=== PATIENT | female | born 1975 | race Caucasian/White ===

== ENCOUNTER 2021-10-26 11:13 | Observation (INO) | payer OTHER ==
[2021-10-26] MEDS ORDERED: SODIUM CHLORIDE 0.9% 500 ML 500 ML IV STA (11:31)
--- NOTE | 2021-10-26 11:50 | ED ---
General Adult HPI - General Chief complaint: Shortness of Breath Stated complaint: SOB Time Seen by Provider: 10/26/21 11:29 Source: patient, family, RN notes reviewed, old records reviewed Mode of arrival: ambulatory Limitations: no limitations - History of Present Illness Initial comments: This is a well-appearing 46-year-old female who presents to the emergency room with complaints of shortness of breath for the past week. She states over the past hour it has gotten worse which prompted her to come to the emergency room. Patient states that she does have a history of chest pain and has a pacemaker for "mini heart attacks". States that most of her care was in [place] however they just moved here. She has not established a primary care doctor yet. She was recently diagnosed this year with a nodule in her right lung and was directed to follow up with oncology however she does not have insurance and could not follow-up. She states she went to a hospital in [place] in September and they stated that she does have an enlarged lymph node and again recommended that she follow up. Patient states that at this time she feels short of breath with chest pain that worsens with deep breaths. She is a current smoker. She does have a history of non-Hodgkin's lymphoma several years ago. She does take an aspirin a day. -: week(s) (1) Location: chest Severity scale (1-10): 7 Associated Symptoms: shortness of breath, other (Dizziness) Treatments Prior to Arrival: Aspirin - Related Data Home Medications Medication Instructions Recorded Confirmed Aspirin EC [Ecotrin Low Dose] 81 mg PO DAILY 10/26/21 10/26/21 Isosorbide Mononitrate ER [Imdur] 30 mg PO DAILY 10/26/21 10/26/21 Metoprolol Succinate [Metoprolol 25 mg PO DAILY 10/26/21 10/26/21 Succinate ER] Omeprazole 40 mg PO BID 10/26/21 10/26/21 Allergies Allergy/AdvReac Type Severity Reaction Status Date / Time acetaminophen [From Percocet] Allergy Rash/Hives Verified 10/26/21 13:00 oxycodone [From Percocet] Allergy Rash/Hives Verified 10/26/21 13:00 Review of Systems ROS Statement: Those systems with pertinent positive or pertinent negative responses have been documented in the HPI. ROS Other: All systems not noted in ROS Statement are negative. Past Medical History Past Medical History: Cancer, Respiratory Disorder History of Any Multi-Drug Resistant Organisms: None Reported Past Psychological History: No Psychological Hx Reported Smoking Status: Current every day smoker Past Alcohol Use History: Rare Past Drug Use History: None Reported General Exam Limitations: no limitations General appearance: alert, in no apparent distress Head exam: Present: atraumatic Eye exam: Absent: periorbital swelling ENT exam: Present: mucous membranes moist Neck exam: Absent: meningismus Respiratory exam: Present: normal lung sounds bilaterally. Absent: respiratory distress, accessory muscle use Cardiovascular Exam: Present: regular rate, normal rhythm Extremities exam: Present: normal capillary refill. Absent: pedal edema Back exam: Absent: tenderness Neurological exam: Present: alert, oriented X3, normal gait Psychiatric exam: Present: normal affect, normal mood Skin exam: Present: warm, dry, normal color. Absent: cyanosis, diaphoretic, petechiae, pallor Course Vital Signs 10/26/21 11:23 Temperature 98.1 F Pulse Rate 76 Respiratory 18 Rate Blood Pressure 132/85 O2 Sat by Pulse 98 Oximetry EKG Findings - EKG Results: EKG: sinus rhythm (Ventricular rate 65, OK interval 0.186, QRS 0.96, QTC 0.411) Medical Decision Making - Medical Decision Making Patient presents with chest pain, shortness of breath and dizziness worsening over the past week. She does have a history of non-Hodgkin's lymphoma in r emission, pacemaker and she is a current smoker. Hemoglobin and hematocrit are stable with no evidence of leukocytosis. D-dimer is negative at 0.29. Electrolytes are unremarkable with no evidence of lactic acidosis. Troponin is negative at 0.012 EKG shows sinus rhythm with no ST elevation. There is no old EKG to compare. Chest x-ray shows no evidence of consolidation or effusion. There is no acute cardiopulmonary disease or process. Patient states that she was told that she has a 1.6 cm nodule in her right lung by [facility] in July of this year and confirmed by CT scan at [facility] in September. Medical records were obtained from [place] showing chest CT without contrast identified a 1.6 cm right upper lobe pleural based nodule that may be benign or malignant. A prominent right paratracheal lymph node. Due to patient's chest pain and shortness of breath with a cardiac history of pacemaker and no established care here in [place], she will be admitted to the hospital with cardiology consult. Oncology and pulmonology on consult for right upper lobe nodule. Patient is agreeable to this plan of care. Case discussed with Dr. Haley. - Lab Data Result diagrams: 10/26/21 11:50 10/26/21 11:50 Lab Results 10/26/21 10/26/21 10/26/21 Range/Units 11:50 11:50 11:50 WBC 6.7 (3.8-10.6) k/uL RBC 4.95 (3.80-5.40) m/uL Hgb 14.2 (11.4-16.0) gm/dL Hct 42.5 (34.0-46.0) % MCV 85.8 (80.0-100.0) fL MCH 28.7 (25.0-35.0) pg MCHC 33.5 (31.0-37.0) g/dL RDW 13.8 (11.5-15.5) % Plt Count 167 (150-450) k/uL MPV 9.5 Neutrophils % 63 % Lymphocytes % 28 % Monocytes % 5 % Eosinophils % 3 % Basophils % 1 % Neutrophils # 4.2 (1.3-7.7) k/uL Lymphocytes # 1.9 (1.0-4.8) k/uL Monocytes # 0.3 (0-1.0) k/uL Eosinophils # 0.2 (0-0.7) k/uL Basophils # 0.0 (0-0.2) k/uL PT 10.3 (9.0-12.0) sec INR 0.9 (<1.2) APTT 25.1 (22.0-30.0) sec D-Dimer 0.29 (<0.60) mg/L FEU Sodium 137 (137-145) mmol/L Potassium 4.5 (3.5-5.1) mmol/L Chloride 107 (98-107) mmol/L Carbon Dioxide 24 (22-30) mmol/L Anion Gap 6 mmol/L BUN 12 (7-17) mg/dL Creatinine 0.75 (0.52-1.04) mg/dL Est GFR (CKD-EPI)AfAm >90 (>60 ml/min/1.73 sqM) Est GFR (CKD-EPI)NonAf >90 (>60 ml/min/1.73 sqM) Glucose 176 H (74-99) mg/dL Plasma Lactic Acid John (0.7-2.0) mmol/L Calcium 8.8 (8.4-10.2) mg/dL Magnesium 1.9 (1.6-2.3) mg/dL Total Bilirubin 0.5 (0.2-1.3) mg/dL AST 42 H (14-36) U/L ALT 33 (4-34) U/L Alkaline Phosphatase 123 (38-126) U/L Troponin I (0.000-0.034) ng/mL Total Protein 6.9 (6.3-8.2) g/dL Albumin 3.9 (3.5-5.0) g/dL 10/26/21 10/26/21 Range/Units 11:50 11:50 WBC (3.8-10.6) k/uL RBC (3.80-5.40) m/uL Hgb (11.4-16.0) gm/dL Hct (34.0-46.0) % MCV (80.0-100.0) fL MCH (25.0-35.0) pg MCHC (31.0-37.0) g/dL RDW (11.5-15.5) % Plt Count (150-450) k/uL MPV Neutrophils % % Lymphocytes % % Monocytes % % Eosinophils % % Basophils % % Neutrophils # (1.3-7.7) k/uL Lymphocytes # (1.0-4.8) k/uL Monocytes # (0-1.0) k/uL Eosinophils # (0-0.7) k/uL Basophils # (0-0.2) k/uL PT (9.0-12.0) sec INR (<1.2) APTT (22.0-30.0) sec D-Dimer (<0.60) mg/L FEU Sodium (137-145) mmol/L Potassium (3.5-5.1) mmol/L Chloride (98-107) mmol/L Carbon Dioxide (22-30) mmol/L Anion Gap mmol/L BUN (7-17) mg/dL Creatinine (0.52-1.04) mg/dL Est GFR (CKD-EPI)AfAm (>60 ml/min/1.73 sqM) Est GFR (CKD-EPI)NonAf (>60 ml/min/1.73 sqM) Glucose (74-99) mg/dL Plasma Lactic Acid John 1.6 (0.7-2.0) mmol/L Calcium (8.4-10.2) mg/dL Magnesium (1.6-2.3) mg/dL Total Bilirubin (0.2-1.3) mg/dL AST (14-36) U/L ALT (4-34) U/L Alkaline Phosphatase (38-126) U/L Troponin I <0.012 (0.000-0.034) ng/mL Total Protein (6.3-8.2) g/dL Albumin (3.5-5.0) g/dL Disposition Clinical Impression: Chest pain at rest, Dizziness, Shortness of breath Disposition: ADMITTED IP TO THIS [facility] Condition: Good Referrals: None,Stated [Primary Care Provider] - 1-2 days Decision Date: 10/26/21 Decision Time: 12:29
[2021-10-26 11:57] LABS: Basophils % (A) 1 %; Eosinophils % (A) 3 %; HCT 42.5 % (34.0-46.0); HGB 14.2 gm/dL (11.4-16.0); Lymphocytes # (A) 1.9 k/uL (1.0-4.8); Lymphocytes % (A) 28 %; MCH 28.7 pg (25.0-35.0); MCHC 33.5 g/dL (31.0-37.0); MCV 85.8 fL (80.0-100.0); Mean Platelet Volume 9.5; Monocytes # (A) 0.3 k/uL (0-1.0); Monocytes % (A) 5 %; Neutrophils # (A) 4.2 k/uL (1.3-7.7); Neutrophils % (A) 63 %; Platelet Count 167 k/uL (150-450); RBC 4.95 m/uL (3.80-5.40); RDW 13.8 % (11.5-15.5); WBC 6.7 k/uL (3.8-10.6)
[2021-10-26 11:58] LABS: Eosinophils # (A) 0.2 k/uL (0-0.7)
[2021-10-26 12:08] LABS: ALT 33 U/L (4-34); AST 42 U/L (14-36); African American GFR (CKD) >90 (>60 ml/min/1.73 sqM); Albumin 3.9 g/dL (3.5-5.0); Alkaline Phosphatase 123 U/L (38-126); Anion Gap 6 mmol/L; Blood Urea Nitrogen 12 mg/dL (7-17); Calcium 8.8 mg/dL (8.4-10.2); Carbon Dioxide 24 mmol/L (22-30); Chloride 107 mmol/L (98-107); Glucose 176 mg/dL (74-99); Magnesium 1.9 mg/dL (1.6-2.3); Non-African American GFR(CKD) >90 (>60 ml/min/1.73 sqM); Potassium 4.5 mmol/L (3.5-5.1); Sodium 137 mmol/L (137-145); Total Bilirubin 0.5 mg/dL (0.2-1.3); Total Protein 6.9 g/dL (6.3-8.2)
[2021-10-26 12:15] LABS: INR 0.9 (<1.2); Partial Thromboplastin Time 25.1 sec (22.0-30.0); Prothrombin Time 10.3 sec (9.0-12.0)
--- NOTE | 2021-10-26 12:37 | XR ---
EXAMINATION TYPE: XR chest 2V DATE OF EXAM: 10/26/2021 12:04 PM COMPARISON: None TECHNIQUE: XR chest 2V Frontal and lateral views of the chest. CLINICAL INDICATION:Female, 46 years old with history of difficulty breathing; FINDINGS: Lungs/Pleura: There is no evidence of pleural effusion, focal consolidation, or pneumothorax. Pulmonary vascularity: Unremarkable. Heart/mediastinum: Cardiomediastinal silhouette is unremarkable. Two lead cardiac conduction device o verlying the left hemithorax with lead tips projecting over the right ventricle and right atrium. Musculoskeletal: No acute osseous pathology. IMPRESSION: No acute cardiopulmonary disease/process.
[2021-10-26] MEDS ORDERED: IBUPROFEN 400 MG TAB PO PRN (13:01)
[2021-10-26] MEDS ORDERED: NALOXONE 0.4 MG/ML 1 ML VIAL IV PRN (13:01)
--- NOTE | 2021-10-26 15:00 | P.HPIM ---
History of Present Illness H&P Date: 10/26/21 Chief Complaint: Shortness of breath Chief complaint: Shortness of breath History of present illness: 46-year-old female with history of heart block status post pacemaker. History of lymphoma in remission. GERD. Pulmonary nodule. Current smoker. Presented to the hospital with complaints of chest pain and shortness of breath. The patient describes her chest pain is worse with deep inspiration. The patient just pain has been going on for several months. She stated that she was admitted with it at a different facility and she was told that she had pleurisy but she was never prescribed any medication. She has history of cardiac pacemaker secondary to heart block. She had her last cardiac workup in [place] in 2019. She has not followed up with [facility]coiler now or her PCP as she moved recently from [place]. She also describes shortness of breath with exertion. Denied PND or orthopnea. She does have a strong family history of coronary artery disease. Review of Systems Constitutional: Reports as per HPI, Reports anorexia, Reports fatigue, Reports poor appetite Eyes: denies as per HPI Respiratory: Reports cough, Reports dyspnea, Reports pleurisy Gastrointestinal: Reports as per HPI Genitourinary: Reports as per HPI Musculoskeletal: Reports as per HPI Neurological: Reports as per HPI Psychiatric: Reports as per HPI Endocrine: Reports as per HPI Hematologic/Lymphatic: Reports as per HPI Past Medical History Past Medical History: Cancer, Respiratory Disorder History of Any Multi-Drug Resistant Organisms: None Reported Past Surgical History: Cholecystectomy Past Psychological History: No Psychological Hx Reported Smoking Status: Current every day smoker Past Alcohol Use History: Occasional, Rare Past Drug Use History: None Reported, Unable to Obtain Medications and Allergies Home Medications Medication Instructions Recorded Confirmed Type Aspirin EC [Ecotrin Low Dose] 81 mg PO DAILY 10/26/21 10/26/21 History Isosorbide Mononitrate ER [Imdur] 30 mg PO DAILY 10/26/21 10/26/21 History Metoprolol Succinate [Metoprolol 25 mg PO DAILY 10/26/21 10/26/21 History Succinate ER] Omeprazole 40 mg PO BID 10/26/21 10/26/21 History Allergies Allergy/AdvReac Type Severity Reaction Status Date / Time acetaminophen [From Percocet] Allergy Rash/Hives Verified 10/26/21 13:00 oxycodone [From Percocet] Allergy Rash/Hives Verified 10/26/21 13:00 Physical Exam Vitals: Vital Signs Temp Pulse Resp BP Pulse Ox 10/26/21 13:27 61 15 134/74 100 10/26/21 11:23 98.1 F 76 18 132/85 98 Intake and Output 10/25/21 10/26/21 10/26/21 22:59 06:59 14:59 Other: Weight 104.326 kg General: Alert and oriented 4. Not in distress. Neck supple. No JVD Heart: Sinus rhythm. No murmurs. Lungs: Clear to auscultation. No crackles or wheezing. Abdomen: Soft. Obese. Nontender. Not distended. Positive bowel sounds in 4 quadrants. Skin: Warm and dry. Results CBC & Chem 7: 10/26/21 11:50 10/26/21 11:50 Labs: Abnormal Lab Results - Last 24 Hours (Table) 10/26/21 Range/Units 11:50 Glucose 176 H (74-99) mg/dL AST 42 H (14-36) U/L Thrombosis Risk Factor Assmnt - DVT/VTE Prophylaxis DVT/VTE Prophylaxis: Mechanical Prophylaxis ordered Assessment and Plan Assessment: 46-year-old female with history of heart block status post pacemaker, lymphoma in remission and current smoker presented to the hospital with worsening shortness of breath and chest pain # Chest pain with breathing. 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 May need stress test. Cardiology consulted. Cont ASA, STATINS ECho ordered Fatigue Unknown reason Could be attributed to medications such as BB Will defer to Cards regarding adjustment of meds DVT PPX: Mechanical Will Cont to monitor
[2021-10-26] MEDS: PANTOPRAZOLE 40 MG TABLET PO SCH (16:43)
[2021-10-27] MEDS ORDERED: METOPROLOL SUCCINATE (ER) 25 MG TAB.ER.24H PO SCH (09:00)
--- NOTE | 2021-10-27 09:20 | P.CRDCN ---
History of Present Illness Consult date: 10/27/21 Chief complaint: Chest discomfort History of present illness: This is a 46-year-old female patient with a past medical history significant for permanent pacemaker as well as history of coronary vasospasm according to her as well as hypertension who presented to the hospital complaining of chest discomfort. 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 She presented initially into a facility here complaining of chest discomfort and then she was transferred here. She stated that for the last few days she has been experiencing discomfort in the middle of the chest as a sharp kind of discomfort worse with deep breath. The chest discomfort is not exertionally related. No shortness of breath associated with it. No sweating. No dizziness or lightheadedness and no feeling of heart racing or fluttering or presyncope or syncope. She underwent a workup including EKG showing sinus rhythm without any ischemic ST or T-wave abnormalities and also she underwent cardiac enzymes came in to be unremarkable. D-dimer also was checked and came in to be unremarkable. The chest x-ray did not show any acute abnormalities. She stated that she underwent a heart catheterization about 3 years ago and that came in to be unremarkable. No documentation as of yet Past Medical History Past Medical History: Cancer, Respiratory Disorder Additional Past Medical History / Comment(s): hodgkin lymphoma History of Any Multi-Drug Resistant Organisms: None Reported Past Surgical History: Cholecystectomy Past Psychological History: No Psychological Hx Reported Smoking Status: Current every day smoker Past Alcohol Use History: Occasional, Rare Past Drug Use History: None Reported, Unable to Obtain Medications and Allergies Home Medications Medication Instructions Recorded Confirmed Type Aspirin EC [Ecotrin Low Dose] 81 mg PO DAILY 10/26/21 10/26/21 History Isosorbide Mononitrate ER [Imdur] 30 mg PO DAILY 10/26/21 10/26/21 History Metoprolol Succinate [Metoprolol 25 mg PO DAILY 10/26/21 10/26/21 History Succinate ER] Omeprazole 40 mg PO BID 10/26/21 10/26/21 History Allergies Allergy/AdvReac Type Severity Reaction Status Date / Time acetaminophen [From Percocet] Allergy Rash/Hives Verified 10/26/21 13:00 oxycodone [From Percocet] Allergy Rash/Hives Verified 10/26/21 13:00 Physical Exam Vitals: Vital Signs Temp Pulse Pulse Resp BP BP BP 10/27/21 08:09 10/27/21 07:00 97.7 F 60 17 164/89 10/27/21 02:45 97.9 F 52 L 16 150/77 10/26/21 19:03 98.0 F 60 17 145/78 10/26/21 15:38 60 16 144/78 10/26/21 13:27 61 15 134/74 10/26/21 11:23 98.1 F 76 18 132/85 Pulse Ox 10/27/21 08:09 97 10/27/21 07:00 97 10/27/21 02:45 94 L 10/26/21 19:03 97 10/26/21 15:38 96 10/26/21 13:27 100 10/26/21 11:23 98 Intake and Output 10/26/21 10/27/21 10/27/21 22:59 06:59 14:59 Other: Voiding Method Toilet Toilet # Voids 1 2 Weight 104.326 kg - Constitutional General appearance: no acute distress - Respiratory Respiratory: bilateral: CTA - Cardiovascular Rhythm: regular Heart sounds: normal: S1, S2 Abnormal Heart Sounds: systolic murmur Results 10/26/21 11:50 10/26/21 11:50 Cardiac Enzymes 10/26/21 10/26/21 10/26/21 Range/Units 11:50 11:50 15:20 AST 42 H (14-36) U/L Troponin I <0.012 <0.012 (0.000-0.034) ng/mL 10/26/21 Range/Units 21:06 AST (14-36) U/L Troponin I <0.012 (0.000-0.034) ng/mL Coagulation 10/26/21 Range/Units 11:50 PT 10.3 (9.0-12.0) sec APTT 25.1 (22.0-30.0) sec CBC 10/26/21 Range/Units 11:50 WBC 6.7 (3.8-10.6) k/uL RBC 4.95 (3.80-5.40) m/uL Hgb 14.2 (11.4-16.0) gm/dL Hct 42.5 (34.0-46.0) % Plt Count 167 (150-450) k/uL Comprehensive Metabolic Panel 10/26/21 Range/Units 11:50 Sodium 137 (137-145) mmol/L Potassium 4.5 (3.5-5.1) mmol/L Chloride 107 (98-107) mmol/L Carbon Dioxide 24 (22-30) mmol/L BUN 12 (7-17) mg/dL Creatinine 0.75 (0.52-1.04) mg/dL Glucose 176 H (74-99) mg/dL Calcium 8.8 (8.4-10.2) mg/dL AST 42 H (14-36) U/L ALT 33 (4-34) U/L Alkaline Phosphatase 123 (38-126) U/L Total Protein 6.9 (6.3-8.2) g/dL Albumin 3.9 (3.5-5.0) g/dL Current Medications Generic Name Dose Route Start Last Admin Trade Name Freq PRN Reason Stop Dose Admin Aspirin 81 mg 10/27/21 09:00 Aspirin 81 Mg PO DAILY [facility] Ibuprofen 400 mg 10/26/21 13:01 Ibuprofen 400 Mg Tab PO Q6HR PRN Mild Pain or Fever > 100.5 Isosorbide Mononitrate 30 mg 10/27/21 09:00 Isosorbide Mononitrate Er 30 Mg Tab.Er.24h PO DAILY [facility] Metoprolol Succinate 25 mg 10/27/21 09:00 Metoprolol Succinate (Er) 25 Mg Tab.Er.24h PO DAILY [facility] Naloxone HCl 0.2 mg 10/26/21 13:01 Naloxone 0.4 Mg/Ml 1 Ml Vial IV Q2M PRN Opioid Reversal Pantoprazole Sodium 40 mg 10/26/21 17:30 10/26/21 16:43 Pantoprazole 40 Mg Tablet PO 40 mg BID@0730,1730 [facility] Administration Intake and Output 10/26/21 10/27/21 10/27/21 22:59 06:59 14:59 Other: Voiding Method Toilet Toilet # Voids 1 2 Weight 104.326 kg 10/26/21 11:50 10/26/21 11:50 Assessment and Plan Assessment: Assessment #1 atypical/pleuritic chest discomfort #2 known coronary vasospasm "according to the patient" #3 permanent pacemaker #4 hypertension Plan #1 acute coronary event was ruled out #2 venous thromboembolism was ruled out. D-dimer came in to be unremarkable #3 the picture could be consistent with pericarditis #4 in the light of prior diagnosis of coronary vasospasm, going to DC beta sarah and replace it with dihydropyridine calcium channel sarah #5 obtain an echocardiogram #6 follow-up with the pt
[2021-10-27 09:43] LABS: HCT 40.7 % (37.2-46.3); HGB 12.9 g/dL (12.0-15.0); MCH 26.9 pg (27.0-32.0); MCHC 31.7 g/dL (32.0-37.0); Mean Platelet Volume 12.2 fL (9.5-12.2); NRBC Per 100 WBC 0 /100 WBCS (0.0-0.0); Platelet Count 136 X 10*3/uL (140-440); RBC 4.79 X 10*6/uL (4.10-5.20); RDW 13.5 % (11.5-14.5); WBC 5.28 X 10*3/uL (4.50-10.00)
[2021-10-27] MEDS: PANTOPRAZOLE 40 MG TABLET PO SCH ×2 (09:58→17:31)
[2021-10-27] MEDS: amLODIPine 5 MG TAB PO SCH (09:58)
[2021-10-27] MEDS: ISOSORBIDE MONONITRATE ER 30 MG TAB.ER.24H PO SCH (09:58)
[2021-10-27] MEDS: ASPIRIN 81 MG PO SCH (09:58)
--- NOTE | 2021-10-27 10:17 | P.CNPUL ---
History of Present Illness Consult date: 10/27/21 Chief complaint: Shortness of breath, chest pain History of present illness: 46-year-old female patient who recently moved to [place] from [place], has not established herself with insurance or primary care physician who presented emergency department on 10/26/2021 with complaints of shortness of breath, mild cough, with some whitish colored phlegm, and chest pressure in the lower midsternal area, that last anywhere from minutes to a few hours, worse with deep inspiration. Patient has a long history of smoking. She is not normally on any inhalers or oxygen. She has a permanent pacemaker, and history of Hodgkin's lymphoma which is currently in remission. She had a computed tomography scan of the chest last month that showed 1.6 cm lung nodule, and her most recent computed tomography scan of the chest showed increase in the size of pleural based right upper lobe nodule to 1.7 cm and right paratracheal lymph node enlargement. Chest x-ray in emergency department at the [facility] ED showed no acute cardiopulmonary process. CBC was within normal limits, d-dimer was negative at 0.29, the rest of correlation profile was within normal limits, electrolytes and renal profile were unremarkable, 3 sets of troponins were less than 0.012. EKG showed sinus rhythm without acute ischemic ST or T-wave abnormalities. Review of Systems All systems: negative Constitutional: Denies chills, Denies fever Eyes: denies blurred vision, denies pain Ears, nose, mouth and throat: Denies headache, Denies sore throat Cardiovascular: Denies chest pain, Denies shortness of breath Respiratory: Reports dyspnea, Denies cough Gastrointestinal: Denies abdominal pain, Denies diarrhea, Denies nausea, Denies vomiting Genitourinary: Denies dysuria, Denies hematuria Musculoskeletal: Denies myalgias Integumentary: Denies pruritus, Denies rash Neurological: Denies numbness, Denies weakness Psychiatric: Denies anxiety, Denies depression Endocrine: Denies fatigue, Denies weight change Past Medical History Past Medical History: Cancer, Respiratory Disorder Additional Past Medical History / Comment(s): hodgkin lymphoma History of Any Multi-Drug Resistant Organisms: None Reported Past Surgical History: Cholecystectomy Past Psychological History: No Psychological Hx Reported Smoking Status: Current every day smoker Past Alcohol Use History: Occasional, Rare Past Drug Use History: None Reported, Unable to Obtain Medications and Allergies Home Medications Medication Instructions Recorded Confirmed Type Aspirin EC [Ecotrin Low Dose] 81 mg PO DAILY 10/26/21 10/26/21 History Isosorbide Mononitrate ER [Imdur] 30 mg PO DAILY 10/26/21 10/26/21 History Metoprolol Succinate [Metoprolol 25 mg PO DAILY 10/26/21 10/26/21 History Succinate ER] Omeprazole 40 mg PO BID 10/26/21 10/26/21 History Allergies Allergy/AdvReac Type Severity Reaction Status Date / Time acetaminophen [From Percocet] Allergy Rash/Hives Verified 10/26/21 13:00 oxycodone [From Percocet] Allergy Rash/Hives Verified 10/26/21 13:00 Physical Exam Vitals: Vital Signs Temp Pulse Pulse Resp BP BP BP 10/27/21 08:09 10/27/21 07:00 97.7 F 60 17 164/89 10/27/21 02:45 97.9 F 52 L 16 150/77 10/26/21 19:03 98.0 F 60 17 145/78 10/26/21 15:38 60 16 144/78 10/26/21 13:27 61 15 134/74 10/26/21 11:23 98.1 F 76 18 132/85 Pulse Ox 10/27/21 08:09 97 10/27/21 07:00 97 10/27/21 02:45 94 L 10/26/21 19:03 97 10/26/21 15:38 96 10/26/21 13:27 100 10/26/21 11:23 98 Intake and Output 10/26/21 10/27/21 10/27/21 22:59 06:59 14:59 Other: Voiding Method Toilet Toilet # Voids 1 2 Weight 104.326 kg GENERAL EXAM: Alert, very pleasant, 46-year-old white female, comfortable in no apparent distress. HEAD: Normocephalic/atraumatic. EYES: Normal reaction of pupils, equal size. Conjunctiva pink, sclera white. NOSE: Clear with pink turbinates. THROAT: No erythema or exudates. NECK: No masses, no JVD, no thyroid enlargement, no adenopathy. CHEST: No chest wall deformity. Symmetrical expansion. LUNGS: Equal air entry with no crackles, wheeze, rhonchi or dullness. CVS: Regular rate and rhythm, normal S1 and S2, no gallops, no murmurs, no rubs ABDOMEN: Soft, nontender. No hepatosplenomegaly, normal bowel sounds, no guarding or rigidity. EXTREMITIES: No clubbing, no edema, no cyanosis, 2+ pulses and upper and lower extremities. MUSCULOSKELETAL: Muscle strength and tone normal. SPINE: No scoliosis or deformity SKIN: No rashes CENTRAL NERVOUS SYSTEM: Alert and oriented -3. No focal deficits, tone is normal in all 4 extremities. PSYCHIATRIC: Alert and oriented -3. Appropriate affect. Intact judgment and insight. Results - Laboratory Findings CBC and BMP: 10/27/21 04:38 10/26/21 11:50 PT/INR, D-dimer PT 10.3 sec (9.0-12.0) 10/26/21 11:50 INR 0.9 (<1.2) 10/26/21 11:50 D-Dimer 0.29 mg/L FEU (<0.60) 10/26/21 11:50 Abnormal lab findings: Abnormal Labs 10/26/21 10/27/21 11:50 04:38 MCH 26.9 L MCHC 31.7 L Plt Count 136 L Glucose 176 H AST 42 H - Diagnostic Findings Chest x-ray: report reviewed, image reviewed Assessment and Plan Plan: Assessment: #1. Right upper lobe pulmonary nodule and right paratracheal lymph node enlargement, with the possibility of primary lung malignancy. Patient will be worked up on an outpatient basis #2. Atypical chest pain #3. History of nicotine dependence #4. Permanent pacemaker Plan: Patient was evaluated at the bedside Unfortunately there is no computed tomography scan of the chest films for review from the outside facility We did review the report From pulmonary perspective patient is stable, and the pulmonary nodule will be worked up on an outpatient basis No need to re-scan the patient at this facility Patient will need outpatient PET scan If cleared by cardiology patient could be considered for discharge home Outpatient follow-up with Dr. Stewart in the office I have personally seen and examined the patient, performed the documentation and the assessment and plan as written. Number of minutes spent on the visit: [15] Time with Patient: Greater than 30
[2021-10-27 11:14] LABS: African American GFR (CKD) 107.8 (60.0-200.0); Anion Gap 9.2 mmol/L (10.00-18.00); BUN/Creat Ratio 13.66 Ratio (12.00-20.00); Blood Urea Nitrogen 10.6 mg/dL (9.0-27.0); Calcium 8.6 mg/dL (8.7-10.3); Carbon Dioxide 23.1 mmol/L (20.0-27.5); Potassium 4.3 mmol/L (3.5-5.5)
--- NOTE | 2021-10-27 12:46 | CT ---
EXAMINATION TYPE: CT chest wo con CT DLP: 431.50 mGycm, Automated exposure control for dose reduction was used. DATE OF EXAM: 10/27/2021 12:26 PM COMPARISON: Chest radiograph from one day prior. CLINICAL INDICATION:Female, 46 years old with history of Lung nodule; TECHNIQUE: Multiple axial images were obtained through the chest. Sagittal and coronal reformats were created for review. Contrast used: none. Oral contrast used: none. FINDINGS: LUNGS/ PLEURA: Right upper lobe pulmonary nodule measuring up to 17 mm a with possible focus of cavit ation present no evidence of focal consolidation, pneumothorax or pleural effusion. No additional nod ules identified. AIRWAY: Patent and unremarkable. HEART: The heart is mildly enlarged for size. MEDIASTINUM: Right low paratracheal prominent lymph nodes with some enlarged measuring up to 10 mm in short axis. VASCULATURE: No aortic aneurysm. MUSCULOSKELETAL: No acute osseous abnormalities SOFT TISSUES/LYMPH NODES: Left chest wall cardiac conduction device with leads terminating in the rig ht ventricle and atrium. LOWER NECK: No significant findings. UPPER ABDOMEN: Diffuse low-attenuation to the liver parenchyma. Soft tissue nodule in the left adrena l gland which is indeterminate and measures the gallbladder surgically absent. Up to 2.1 cm. IMPRESSION: Right upper lobe pulmonary nodule measuring up to 17 mm with possible early cavitation. Further evalu ation with tissue sampling and/or nuclear medicine PET/CT is recommended. Comparisons with priors at outside institutions may be of benefit for stability. Diagnosis of exclusion is malignancy with under lying infectious/inflammatory processes also remain in the differential given cavitation thought to b e present
[2021-10-27] MEDS ORDERED: COLCHICINE 0.6 MG EACH PO ONE (12:47)
--- NOTE | 2021-10-27 12:58 | P.PN ---
Subjective Progress Note Date: 10/27/21 Principal diagnosis: Chest pain follow-up The patient was seen and examined today. She is sitting in bed and looks comfortable. No acute events overnight. She stated that her chest pain is improving. She still have some with deep breathing. She does not have palpitations. Her appetite is good. Objective - Vital Signs Vital signs: Vital Signs Temp 97.4 F L 10/27/21 11:54 Pulse 59 L 10/27/21 11:54 Resp 17 10/27/21 11:54 BP 135/78 10/27/21 11:54 Pulse Ox 95 10/27/21 11:54 FiO2 Intake & Output 10/26/21 10/27/21 10/27/21 18:59 06:59 18:59 Weight 104.326 kg Other: Voiding Method Toilet # Voids 2 - Constitutional General appearance: Present: cooperative, no acute distress - Neck Neck: Present: normal ROM - Respiratory Respiratory: bilateral: CTA, negative: rales, rhonchi, wheezing - Cardiovascular Rhythm: regular Heart sounds: normal: S1, S2 - Gastrointestinal General gastrointestinal: Present: normal bowel sounds, soft - Neurologic Neurologic: Present: CNII-XII intact. Absent: focal deficits - Labs CBC & Chem 7: 10/27/21 04:38 10/27/21 04:38 Labs: Abnormal Lab Results - Last 24 Hours (Table) 10/27/21 10/27/21 Range/Units 04:38 04:38 MCH 26.9 L (27.0-32.0) pg MCHC 31.7 L (32.0-37.0) g/dL Plt Count 136 L (140-440) X 10*3/uL Anion Gap 9.20 L (10.00-18.00) mmol/L Glucose 173 H (70-110) mg/dL Calcium 8.6 L (8.7-10.3) mg/dL Assessment and Plan Plan: Assessment and plan: Pleuritic chest pain Likely pleuritic in nature. EKG and troponin negative. ACS ruled out. Cardiology saw patient. Echocardiogram pending. Patient also has history of coronary spasms. Metoprolol was discontinued secondary to side effect of fatigue. Norvasc was added by cardiology due to vasospasms and blood pressure control. Continue to monitor. Discontinue ibuprofen. Started on colchicine for pleuritic chest pain. Colchicine 1.2 mg 1 time and then colchicine 0.6 mg by mouth twice a day until resolution of symptoms. Prior history of heart block status post pacemaker. Recommend device interrogation as an outpatient. Recommend follow-up with cardiology as an outpatient Right lung nodule Oncology consulted. Computed tomography scan of the chest pending Smoking: Recommended cessation. Disposition: Pending echocardiogram. Likely home tomorrow. Time with Patient: Greater than 30
[2021-10-27] MEDS ORDERED: IBUPROFEN 400 MG TAB PO STA (19:35)
[2021-10-27] MEDS: COLCHICINE 0.6 MG EACH PO SCH (20:08)
--- NOTE | 2021-10-27 23:55 | P.CONS ---
History of Present Illness - Reason for Consult Consult date: 10/27/21 Lung nodule, history of Hodgkin's lymphoma - History of Present Illness The patient is a 46-year-old white female, admitted due to complaints of cough, shortness of breath, intermittent subjective fevers, and pleuritic chest pain. The patient's symptoms started about 2 months ago, and have shown slow progression, with intermittent exacerbations. She has not responded to outpatient treatments. Patient's workup included chest x-ray, as well as a computed tomography scan of the chest in 08/11 and another computed tomography scan on 09/24/21 done at [facility]. Both the computed tomography scan showed a right upper lobe lung nodule. The second scan showed possibly some increase in size with cavitation, as well as some nonspecific bronchial nodes. This was an angiogram, that was negative for PE. The patient was admitted for further workup because of progressive symptoms. She has a history of Hodgkin's lymphoma diagnosed in 2000 that appears to have been at least stage III. She was treated with a full course of chemotherapy in [place], and achieved complete remission. She then had oncology follow-up for several years post, without evidence of recurrence Review of Systems Constitutional: Reports chronic pain, Reports fatigue, Reports fever, Reports malaise, Reports poor appetite, Reports weight loss (Minor, 5 pounds in the last 5-6 weeks) Eyes: denies blurred vision, denies pain Ears: deny: decreased hearing, ear discharge, earache, tinnitus Ears, nose, mouth and throat: Denies headache, Denies sore throat Cardiovascular: Reports chest pain, Reports dyspnea on exertion Respiratory: Reports dyspnea, Reports pain on inspiration Gastrointestinal: Denies abdominal pain, Denies diarrhea, Denies nausea, Denies vomiting Genitourinary: Denies dysuria, Denies hematuria Musculoskeletal: Denies myalgias Integumentary: Denies pruritus, Denies rash Neurological: Denies numbness, Denies weakness Psychiatric: Reports anxiety Endocrine: Reports fatigue Hematologic/Lymphatic: Reports as per HPI Past Medical History Past Medical History: Cancer, Respiratory Disorder Additional Past Medical History / Comment(s): hodgkin lymphoma History of Any Multi-Drug Resistant Organisms: None Reported Past Surgical History: Cholecystectomy Past Psychological History: No Psychological Hx Reported Smoking Status: Current every day smoker Past Alcohol Use History: Occasional, Rare Past Drug Use History: None Reported, Unable to Obtain Medications and Allergies Home Medications Medication Instructions Recorded Confirmed Type Aspirin EC [Ecotrin Low Dose] 81 mg PO DAILY 10/26/21 10/26/21 History Isosorbide Mononitrate ER [Imdur] 30 mg PO DAILY 10/26/21 10/26/21 History Metoprolol Succinate [Metoprolol 25 mg PO DAILY 10/26/21 10/26/21 History Succinate ER] Omeprazole 40 mg PO BID 10/26/21 10/26/21 History Allergies Allergy/AdvReac Type Severity Reaction Status Date / Time acetaminophen [From Percocet] Allergy Rash/Hives Verified 10/26/21 13:00 oxycodone [From Percocet] Allergy Rash/Hives Verified 10/26/21 13:00 Physical Exam Vitals: Vital Signs Temp Pulse Pulse Resp BP BP BP 10/27/21 08:09 10/27/21 07:00 97.7 F 60 17 164/89 10/27/21 02:45 97.9 F 52 L 16 150/77 10/26/21 19:03 98.0 F 60 17 145/78 10/26/21 15:38 60 16 144/78 10/26/21 13:27 61 15 134/74 10/26/21 11:23 98.1 F 76 18 132/85 Pulse Ox 10/27/21 08:09 97 10/27/21 07:00 97 10/27/21 02:45 94 L 10/26/21 19:03 97 10/26/21 15:38 96 10/26/21 13:27 100 10/26/21 11:23 98 Intake and Output 10/26/21 10/27/21 10/27/21 22:59 06:59 14:59 Other: Voiding Method Toilet Toilet # Voids 1 2 Weight 104.326 kg - Constitutional General appearance: no acute distress - EENT Eyes: EOMI, PERRLA ENT: hearing grossly normal, normal oropharynx - Neck Neck: no lymphadenopathy Thyroid: bilateral: normal size - Respiratory Respiratory: bilateral: CTA - Cardiovascular Rhythm: regular Heart sounds: normal: S1, S2 - Gastrointestinal General gastrointestinal: normal bowel sounds, soft - Integumentary Integumentary: normal - Neurologic Neurologic: CNII-XII intact - Musculoskeletal Musculoskeletal: generalized weakness, strength equal bilaterally - Psychiatric Psychiatric: A&O x's 3, appropriate affect Mildly prominent soft tissue in the left axilla without definite lymph node enlargement Results CBC & Chem 7: 10/27/21 04:38 10/27/21 04:38 Labs: Abnormal Lab Results - Last 24 Hours (Table) 10/26/21 10/27/21 Range/Units 11:50 04:38 MCH 26.9 L (27.0-32.0) pg MCHC 31.7 L (32.0-37.0) g/dL Plt Count 136 L (140-440) X 10*3/uL Glucose 176 H (74-99) mg/dL AST 42 H (14-36) U/L Chest x-ray: report reviewed CT scan - chest: report reviewed Assessment and Plan (1) Lung nodule Narrative/Plan: the patient has a known right upper lobe lung nodule, which showed some increase in size and cavitation on follow-up study 1 month ago. Given the location and size that would typically not be expected to cause the symptoms that the patient has been having. It is therefore not known if this is related at this time. Repeat CT chest to check for any progression in size or development of any new findings. If that is found, the patient will need additional workup, with PET scan and possible biopsy. Current Visit: Yes Status: Acute Code(s): R91.1 - SOLITARY PULMONARY NODULE SNOMED Code(s): 403345836 (2) Chest pain at rest Narrative/Plan: history and workup so far as described. As noted, etiology is somewhat unclear. The patient did have a CT angiogram last month which ruled out PE. Location and size of the lung nodule makes it unlikely to be the cause of her symptoms. Await results of new CT scan. Continue treatment per IM and pulmonary medicine in the interim. Current Visit: Yes Status: Acute Code(s): R07.9 - CHEST PAIN, UNSPECIFIED SNOMED Code(s): 1455477
[2021-10-28] MEDS: ASPIRIN 81 MG PO SCH (08:12)
[2021-10-28] MEDS: PANTOPRAZOLE 40 MG TABLET PO SCH ×2 (08:12→17:39)
[2021-10-28] MEDS: ISOSORBIDE MONONITRATE ER 30 MG TAB.ER.24H PO SCH (08:12)
[2021-10-28] MEDS: COLCHICINE 0.6 MG EACH PO SCH ×2 (08:12→20:17)
[2021-10-28] MEDS: amLODIPine 5 MG TAB PO SCH (08:12)
[2021-10-28] MEDS ORDERED: COLCHICINE 0.6 MG EACH PO SCH (09:00)
[2021-10-28 09:06] LABS: LDH 149 U/L (120-246); Rheumatoid Factor, Qnt <10 IU/mL (0-15)
[2021-10-28 09:07] LABS: Protein, Total 5.8 g/dL (6.2-8.2)
--- NOTE | 2021-10-28 09:50 | P.PN ---
Subjective This is a 46-year-old female patient with a past medical history significant for permanent pacemaker, history of coronary vasospasm, Hodgkin's lymphoma, hypertension. She recently moved from [place] to [place] and is going to set up cardiology care with a Dr. Carla Oliveira. She presented to the hospital complaining of chest discomfort. She presented initially into a facility here complaining of chest discomfort and then she was transferred here. She stated that for the last few days she has been experiencing discomfort in the middle of the chest as a sharp kind of discomfort worse with deep breath. The chest discomfort is not exertionally related. No shortness of breath associated with it. No sweating. No dizziness or lightheadedness and no feeling of heart racing or fluttering or presyncope or syncope. She underwent a workup including EKG showing sinus rhythm without any ischemic ST or T-wave abnormalities and also she underwent cardiac enzymes came in to be unremarkable. D-dimer also was checked and came in to be unremarkable. The chest x-ray did not show any acute abnormalities. She stated that she underwent a heart catheterization about 3 years ago and that came in to be unremarkable. Patient seen and examined at bedside, no acute distress. She was started on colchicine and amlodipine, and her chest discomfort has improved. She is feeling well this morning. Her vital signs are stable. Her echocardiogram is pending. GENERAL: Well-appearing, well-nourished and in no acute distress. NECK: Supple without JVD or thyromegaly. LUNGS: Breath sounds clear to auscultation bilaterally. Respiration equal and unlabored. No wheezes, rales or rhonchi. HEART: Regular rate and rhythm without murmurs, rubs or gallops. S1 and S2 heard. EXTREMITIES: Normal range of motion, no edema. No clubbing or cyanosis. Pe ripheral pulses intact. ASSESSMENT Chest discomfort, atypical/pleuritic Possible pericarditis, improvement in symptoms with colchicine History of permanent pacemaker implantation History of coronary vasospasm per patient Hypertension Chronic nicotine dependence History of Hodgkin's lymphoma Right upper lobe pulmonary nodule noted on CT chest with concern for malignancy PLAN Acute coronary syndrome has been ruled out We will obtain 2-D echocardiogram Recommend continuing colchicine and amlodipine From cardiology perspective, this patient feels well and her discomfort has improved, okay to discharge from cardiology perspective and follow up outpatient. Nurse Practitioner note has been reviewed, I agree with a documented findings and plan of care. Patient was seen and examined. Objective - Vital Signs Vital signs: Vital Signs Temp 97.7 F 10/28/21 07:00 Pulse 60 10/28/21 07:00 Resp 18 10/28/21 07:00 BP 147/78 10/28/21 07:00 Pulse Ox 96 10/28/21 07:00 FiO2 Intake & Output 10/27/21 10/28/21 10/28/21 18:59 06:59 18:59 Intake Total 222 Balance 222 Intake: Oral 222 Other: Voiding Method Toilet # Voids 2 2 - Labs CBC & Chem 7: 10/27/21 04:38 10/27/21 04:38 Labs: Abnormal Lab Results - Last 24 Hours (Table) 10/27/21 10/27/21 10/28/21 Range/Units 04:38 04:38 03:23 MCH 26.9 L (27.0-32.0) pg MCHC 31.7 L (32.0-37.0) g/dL Plt Count 136 L (140-440) X 10*3/uL Anion Gap 9.20 L (10.00-18.00) mmol/L Glucose 173 H (70-110) mg/dL Calcium 8.6 L (8.7-10.3) mg/dL Total Protein (PEP) 5.8 L (6.2-8.2) g/dL
--- NOTE | 2021-10-28 11:39 | CA ---
Transthoracic Echo Report Name: Ke Myers Age: 46 Gender: F : 1975 Exam Date: 10/28/2021 10:32 Exam Location: [facility] Ht (in): 63 Wt (lb): 230 Ordering Physician: Bre Aguayo MD Attending/Referring Phys: Car Dumper Aagtha Hinojosa RDCS Procedure CPT: Indications: Chest pain , SOB Cardiac Hx: Technical Quality: Fair Contrast 1: Total Dose (mL): Contrast 2: Total Dose (mL): MEASUREMENTS (Male / Female) Normal Values 2D ECHO LV Diastolic Diameter PLAX 5.2 cm 4.2 - 5.9 / 3.9 - 5.3 cm LV Systolic Diameter PLAX 3.5 cm IVS Diastolic Thickness 1.1 cm 0.6 - 1.0 / 0.6 - 0.9 cm LVPW Diastolic Thickness 1.0 cm 0.6 - 1.0 / 0.6 - 0.9 cm LV Relative Wall Thickness 0.4 RV Internal Dim ED PLAX 3.0 cm LA Systolic Diameter LX 3.6 cm 3.0 - 4.0 / 2.7 - 3.8 cm LA Volume 51.5 cm??? 18 - 58 / 22 - 52 cm??? M-MODE Aortic Root Diameter MM 3.0 cm MV E Point Septal Separation 0.7 cm AV Cusp Separation MM 1.8 cm DOPPLER AV Peak Velocity 139.8 cm/s AV Peak Gradient 7.8 mmHg AI Peak Velocity 225.0 cm/s AI Peak Gradient 20.3 mmHg AI Pressure Half Time 515.0 ms MV Area PHT 1.9 cm??? Mitral E Point Velocity 68.0 cm/s Mitral A Point Velocity 102.5 cm/s Mitral E to A Ratio 0.7 MV Deceleration Time 405.2 ms MV E' Velocity 6.1 cm/s Mitral E to MV E' Ratio 11.2 TR Peak Velocity 284.6 cm/s TR Peak Gradient 32.4 mmHg Right Ventricular Systolic Press 37.4 mmHg FINDINGS Left Ventricle Left ventricular ejection fraction is estimated at 55-60 % left ventricular cavity size normal. Left ventricular wall thickness normal. Right Ventricle Normal right ventricular size and function. Mild pulmonary hypertension. Right Atrium Normal right atrial size. Left Atrium Normal left atrial size. Mitral Valve Structurally normal mitral valve. No mitral stenosis, regurgitation or prolapse. Aortic Valve Trileaflet aortic valve. Focal thickening of the aortic valve cusps. Mild aortic regurgitation. Tricuspid Valve Mild tricuspid regurgitation. Pulmonic Valve Structurally normal pulmonic valve. Pericardium Normal pericardium. No pericardial effusion. Aorta Normal size aortic root and proximal ascending aorta. CONCLUSIONS Normal LV systolic function mild aortic regurgitation mild tricuspid regurgitation Previewed by: Dr. Deep Orantes MD (Electronically Signed) Final Date: 28 October 2021 11:38
--- NOTE | 2021-10-28 13:09 | P.PN ---
Subjective Progress Note Date: 10/28/21 Principal diagnosis: Pulm Nodule Discussed preferred plan of outpatient PET scan then potential biopsy of RUL nodule, patient just moved here and is still in between insurance at this time. She has a known history of lymphoma and is quite anxious about the way she has been feeling. Discussed further and will attempt to obtain biopsy inpatient of RUL node Objective - Vital Signs Vital signs: Vital Signs Temp 97.7 F 10/28/21 07:00 Pulse 60 10/28/21 07:00 Resp 18 10/28/21 07:00 BP 147/78 10/28/21 07:00 Pulse Ox 96 10/28/21 07:00 FiO2 Intake & Output 10/27/21 10/28/21 10/28/21 18:59 06:59 18:59 Intake Total 222 Balance 222 Intake: Oral 222 Other: Voiding Method Toilet # Voids 2 2 3 - Exam - Constitutional General appearance: no acute distress - EENT Eyes: EOMI, PERRLA ENT: hearing grossly normal, normal oropharynx - Neck Neck: no lymphadenopathy Thyroid: bilateral: normal size - Respiratory Respiratory: bilateral: CTA - Cardiovascular Rhythm: regular Heart sounds: normal: S1, S2 - Gastrointestinal General gastrointestinal: normal bowel sounds, soft - Integumentary Integumentary: normal - Neurologic Neurologic: CNII-XII intact - Musculoskeletal Musculoskeletal: generalized weakness, strength equal bilaterally - Psychiatric Psychiatric: A&O x's 3, appropriate affect Mildly prominent soft tissue in the left axilla without definite lymph node enlargement - Labs CBC & Chem 7: 10/27/21 04:38 10/27/21 04:38 Labs: Abnormal Lab Results - Last 24 Hours (Table) 10/28/21 Range/Units 03:23 Total Protein (PEP) 5.8 L (6.2-8.2) g/dL Assessment and Plan Plan: Chest x-ray: report reviewed CT scan - chest: report reviewed Assessment and Plan (1) Lung nodule Narrative/Plan: the patient has a known right upper lobe lung nodule, which showed some increase in size and cavitation on follow-up study 1 month ago. Given the location and size that would typically not be expected to cause the symptoms that the patient has been having. It is therefore not known if this is related at this time. Repeat CT chest to check for any progression in size or development of any new findings. If that is found, the patient will need additional workup, with PET scan and possible biopsy. -If possible feel the benefit of RUL tissue biopsy is preferred given the expected delay in PET scan as outpatient and the ultimate need of tissue biopsy of this Nodule. Current Visit: Yes Status: Acute Code(s): R91.1 - SOLITARY PULMONARY NODULE SNOMED Code(s): 769414448 (2) Chest pain at rest Narrative/Plan: Review of CT RUL lesion 1.7cm Continue treatment per IM and pulmonary medicine in the interim. Current Visit: Yes Status: Acute Code(s): R07.9 - CHEST PAIN, UNSPECIFIED SNOMED Code(s): 7178937
[2021-10-28 14:25] LABS: Free Kappa Lt Chain Qnt, Serum 3.27 mg/dL (0.33-1.94); Free Lambda Lt Chain Qnt, Seru 1.49 mg/dL (0.57-2.63)
--- NOTE | 2021-10-28 14:52 | P.PN ---
Subjective Progress Note Date: 10/28/21 Principal diagnosis: Chest pain. Patient denies shortness of breath today. Denied chest pain. Denied nausea or vomiting. Denied fever or chills. Objective - Vital Signs Vital signs: Vital Signs Temp 97.9 F 10/28/21 13:26 Pulse 60 10/28/21 13:26 Resp 16 10/28/21 13:26 BP 144/77 10/28/21 13:26 Pulse Ox 96 10/28/21 13:26 FiO2 Intake & Output 10/27/21 10/28/21 10/28/21 18:59 06:59 18:59 Intake Total 222 118 Balance 222 118 Intake: Oral 222 118 Other: Voiding Method Toilet # Voids 2 2 3 - Exam Gen.: The patient is alert and oriented 3 Neck supple no JVD Lungs clear to auscultation bilaterally Abdomen soft nondistended nontender positive bowel sounds Skin: Warm and dry. - Labs CBC & Chem 7: 10/27/21 04:38 10/27/21 04:38 Labs: Abnormal Lab Results - Last 24 Hours (Table) 10/28/21 Range/Units 03:23 Total Protein (PEP) 5.8 L (6.2-8.2) g/dL Free [place] LC, Quant 3.27 H (0.33-1.94) mg/dL Assessment and Plan Assessment: 46-year-old female with history of heart block status post pacemaker, lymphoma in remission and current smoker presented to the hospital with worsening shortness of breath and chest pain # Chest pain with breathing. Pleuritic in nature Improving student support advisor echo with no significant findings Cardiology consult no further recommendations. At this point her metoprolol was discontinued and she was placed on Norvasc for possible coronary vasospasm. This was done by cardiology. Was started on colchicine for possible pleurisy. Symptoms improved significantly. Patient denied chest pain today. Lung nodule. Computed tomography scan of the chest with contrast revealed evidence of 1.6-1.7 cm lung nodule with lymph node enlargement. Also possible underlying cavitation. Pulmonology was consulted with the plan by oncology to do a PET sca n and possible lung biopsy while the patient is hospitalized as the patient does not have insurance and there is a risk of not following up and developing serious complications. She will be kept in the hospital for that reason had to complete the work up. Smoking: Recommend cessation. History of pacemaker Recommend device interrogation as an outpatient. Disposition: PET scan on the lung biopsy DVT PPX: Mechanical Will Cont to monitor
[2021-10-29 03:04] VITALS: RESP 16; TEMP 98.1
[2021-10-29 07:44] VITALS: BP 154/83; PULSE 63
[2021-10-29] MEDS: COLCHICINE 0.6 MG EACH PO SCH (08:43)
[2021-10-29] MEDS: ISOSORBIDE MONONITRATE ER 30 MG TAB.ER.24H PO SCH (08:43)
[2021-10-29] MEDS: ASPIRIN 81 MG PO SCH (08:43)
[2021-10-29] MEDS: amLODIPine 5 MG TAB PO SCH (08:43)
[2021-10-29] MEDS: PANTOPRAZOLE 40 MG TABLET PO SCH (08:43)
[2021-10-29 16:41] LABS: Albumin 3.36 g/dL (3.80-4.90); Gamma Globulin 0.95 g/dL (0.70-1.50)
--- NOTE | 2021-10-29 17:00 | P.DS ---
Providers Date of admission: 10/26/21 13:39 Expected date of discharge: 10/29/21 Attending physician: Lai Hill MD Consults: 10/26/21 13:01 Consult Physician Routine Consulting Provider: Grady Jane Consult Reason/Comments: chest pain Do you want consulting provider notified?: Yes, Notify in am Consult Physician Routine Consulting Provider: Chip Maldonado Consult Reason/Comments: pulmonary nodule, shortness of breath Do you want consulting provider notified?: Yes, Notify in am 10/26/21 13:04 Consult Physician Routine Consulting Provider: Jourdan Stewart Consult Reason/Comments: Pulmonary nodule Do you want consulting provider notified?: Yes, Notify in am Primary care physician: Stated None Hospital Course: Discharge Diagnosis: Chest pain, possible pericarditis Right upper lobe mass Hypertension Obesity with BMI 40.7 Hospital Course: Patient is a 46-year-old female with a history of heart block status post pacemaker, lymphoma in remission, GERD, and pulmonary nodule who presented to the ER with complaints of chest pain and shortness of breath. He was admitted for chest pain rule out. Her troponin remained negative. She was seen by cardiology and underwent echocardiogram which showed an ejection fraction of 55- 60% with mild aortic and tricuspid regurgitation. She was seen by cardiology and determined stable for discharge. They did recommend continuing with colchicine and following up in the office. CT chest demonstrated a 17 mm right upper lobe pulmonary nodule possible cavitation with no evidence of focal consolidation. Will hematology oncology and pulmonary were contacted. After much discussion that lesion is at high area of her bra with biopsy. Pulmonary recommends PET CT as outpatient, hematology oncology and is in agreement. Patient does not have insurance at this time but is in the process of applying for Medicaid which should be active soon. I discussed with patient's the midportion of follow-up. She understands the importance of needing the PET/CT as well as by biopsy is not indicated at this time. We discussed the risks versus benefits of biopsy were greater at this time given the location of the mass. She is aware that this could be a cancerous lesion and she does need to ensure follow-up for PET/CT, patient agreeable to plan. She was discharged home in stable condition. She will establish with Dr. John is a primary care provider once she has obtained insurance, she'll follow up with Dr. Smalls in 2 weeks. She'll follow up with cardiology in 1-2 weeks. She was discharged home on colchicine due to possible pericarditis and Norvasc for newly discovered hypertension. Patient seen and examined at bedside. States that her chest pain is better. We had a discussion regarding her pulmonary mass as outlined above. No nausea or vomiting. Vital signs reviewed and stable. General: nontoxic, no distress, appears at stated age Derm: warm, dry Head: atraumatic, normocephalic, symmetric Eyes: EOMI, no lid lag, anicteric sclera Mouth: no lip lesion, mucus membranes moist Cardiovascular: S1S2 reg, no murmur, positive posterior tibial pulse bilateral, Lungs: CTA bilateral, no rhonchi, no rales , no accessory muscle use Abdominal: soft, nontender to palpation, no guarding, no appreciable organomegaly Ext: no gross muscle atrophy, no edema, no contractures Neuro: CN II-XI grossly intact, no focal neuro deficits Psych: Alert, oriented, flat affect A total of 25 minutes of time were spent preparing this complex discharge summary. Patient was discharged on 10/29/21. Patient Condition at Discharge: Stable Plan - Discharge Summary Discharge Rx Participant: Yes New Discharge Prescriptions: New Colchicine [Colcrys] 0.6 mg PO BID each amLODIPine [Norvasc] 5 mg PO DAILY tab Continue Omeprazole 40 mg PO BID Isosorbide Mononitrate ER [Imdur] 30 mg PO DAILY Aspirin EC [Ecotrin Low Dose] 81 mg PO DAILY Discontinued Metoprolol Succinate [Metoprolol Succinate ER] 25 mg PO DAILY Discharge Medication List Aspirin EC [Ecotrin Low Dose] 81 mg PO DAILY 10/26/21 [History] Isosorbide Mononitrate ER [Imdur] 30 mg PO DAILY 10/26/21 [History] Omeprazole 40 mg PO BID 10/26/21 [History] Colchicine [Colcrys] 0.6 mg PO BID each 10/28/21 [Rx] amLODIPine [Norvasc] 5 mg PO DAILY tab 10/28/21 [Rx] Follow up Appointment(s)/Referral(s): Grady Jane MD [STAFF PHYSICIAN] - 1 Week None,Stated [Primary Care Provider] - 1-2 days Mariela Jones MD [STAFF PHYSICIAN] - 2 Weeks Activity/Diet/Wound Care/Special Instructions: Activity: as tolerated Diet: heart healthy Special Instructions: You have a nodule in your left lung. This needs a PET/CT to further evaluate the nodule. Please ensure that you follow-up with Dr. Jones to get this arranged. Please continue your medicaid application to obtain insurance. Discharge/Stand Alone Forms: Who Do I Call?, Community Resources, Personal Figure Skater Discharge Disposition: HOME SELF-CARE
--- NOTE | 2021-10-29 17:30 | P.PN ---
Subjective Progress Note Date: 10/29/21 Principal diagnosis: RUL nodule Pt seen in f/u today, she has no acute c/o today Objective - Vital Signs Vital signs: Vital Signs Temp 98.1 F 10/29/21 07:00 Pulse 63 10/29/21 07:00 Resp 16 10/29/21 07:00 BP 154/83 10/29/21 07:00 Pulse Ox 97 10/29/21 07:00 FiO2 Intake & Output 10/28/21 10/29/21 10/29/21 18:59 06:59 18:59 Intake Total 236 Balance 236 Intake: Oral 236 Other: Voiding Method Toilet # Voids 3 1 - Constitutional General appearance: Present: average body habitus, cooperative, no acute distress - EENT Eyes: Present: anicteric sclerae, EOMI ENT: Present: hearing grossly normal - Respiratory Details: resp even and unlabored - Cardiovascular Details: skin warm and dry to touch - Peripheral edema leg Peripheral Edema: bilateral: None - Neurologic Neurologic: Present: CNII-XII intact - Musculoskeletal Musculoskeletal: Present: strength equal bilaterally - Psychiatric Psychiatric: Present: A&O x's 3, appropriate affect, intact judgment & insight - Labs CBC & Chem 7: 10/27/21 04:38 10/27/21 04:38 Labs: Abnormal Lab Results - Last 24 Hours (Table) 10/28/21 Range/Units 03:23 Albumin (PEP) 3.36 L (3.80-4.90) g/dL Assessment and Plan (1) NHL (non-Hodgkin's lymphoma) Status: Chronic Priority: Medium Code(s): C85.90 - NON-HODGKIN LYMPHOMA, UNSPECIFIED, UNSPECIFIED SITE SNOMED Code(s): 521311163 (2) Lung nodule Status: Acute Priority: High Code(s): R91.1 - SOLITARY PULMONARY NODULE SNOMED Code(s): 328695121 Plan: Case discussed with IM, Pulmonary. Lung lesion is non-specific. Recommendation is for PET scan outpt to fully assess pt (has Hx of NHL). If FDG avid, biopsy will be pursued. Will contact pt with appt for PET and f/u. Pt provided info about her NHL Hx, will attempt to obtain records-they would be 24 years old.
== END 2021-10-29 14:04 | disposition home or self-care (01) ==
LOC: EC 11:13 → 6NMEDSUR 13:39
PROVIDERS: ADMIT Internal Medicine; ATTEND Internal Medicine
DX: R07.89 Other chest pain (principal); R91.1 Solitary pulmonary nodule; R09.1 Pleurisy; I20.1 Angina pectoris with documented spasm; I10 Essential (primary) hypertension; K21.9 Gastro-esophageal reflux disease without esophagitis; I45.9 Conduction disorder, unspecified; I08.2 Rheumatic disorders of both aortic and tricuspid valves; R59.0 Localized enlarged lymph nodes; Z68.41 Body mass index [BMI] 40.0-44.9, adult; E66.9 Obesity, unspecified; R53.83 Other fatigue; R42 Dizziness and giddiness; F17.200 Nicotine dependence, unspecified, uncomplicated; Z85.72 Personal history of non-Hodgkin lymphomas; Z79.82 Long term (current) use of aspirin; Z79.899 Other long term (current) drug therapy; Z88.5 Allergy status to narcotic agent; Z88.6 Allergy status to analgesic agent; Z95.0 Presence of cardiac pacemaker; Z71.6 Tobacco abuse counseling; Z90.49 Acquired absence of other specified parts of digestive tract; Z92.21 Personal history of antineoplastic chemotherapy; Z82.49 Family history of ischemic heart disease and other diseases of the circulatory system
CPT/HCPCS: 96360; 99285; 36415; 93005; 93306; 85379; 80053; 80048; 85652; 83605; 83615; 83735; 84484; 85025; 85027; 85610; 85730; 86431; 84165; 86038; 86334; 83883; 71046; 71250; G0378 ×4

== ENCOUNTER → 2023-03-02 | Outpatient (CLI) | payer BC ==
[2023-03-02 09:38] LABS: African American GFR (CKD) >90 (>60 ml/min/1.73 sqM); Blood Urea Nitrogen 14 mg/dL (7-17); Non-African American GFR(CKD) 83 (>60 ml/min/1.73 sqM)
--- NOTE | 2023-03-02 13:28 | CT ---
EXAMINATION TYPE: CT chest w con DATE OF EXAM: 03/02/2023 COMPARISON: 10/27/2021, PET CT 05/30/2022 HISTORY: Solitary Pulmonary Nodule CT DLP: 623 mGycm, Automated exposure control for dose reduction was used. CONTRAST: Performed injected with 100 ml mL of Isovue 300. TECHNIQUE: Axial images were obtained at 5 mm thick sections. Reconstructed images are reviewed on [employer] computer in the coronal plane. FINDINGS: Portion of the thyroid visualized is normal. There is a 1.8 cm peripheral nodule right upper lobe, series 4 image 23. This appears stable in size from the comparison. There appears to be a 1.2 cm pretracheal lymph node within the upper mediastinum no additional enlar ged mediastinal or hilar lymph nodes are evident. The ascending aorta diameter at the level of the ma in pulmonary artery is 3.7 cm. The main pulmonary artery diameter at the bifurcation is 2.[address] sections are obtained through the upper abdomen. Abdomen is essentially unremarkable. IMPRESSION: 1. Stable 1.8 cm nodule right peripheral lung. Follow-up exam in 6 months is recommended.
== END | disposition home or self-care (01) ==
LOC: RADCTMAIN 08:56
PROVIDERS: ATTEND Internal Medicine Critical Care Medicine
DX: R91.1 Solitary pulmonary nodule (principal)
CPT/HCPCS: 82565; 84520; 71260; 36415; Q9967

== ENCOUNTER → 2023-12-28 | Outpatient (CLI) | payer BC ==
[2023-12-28 16:37] LABS: African American GFR (CKD) 79 (>60 ml/min/1.73 sqM); Blood Urea Nitrogen 12 mg/dL (7-17); Non-African American GFR(CKD) 68 (>60 ml/min/1.73 sqM)
--- NOTE | 2023-12-28 17:48 | CT ---
EXAMINATION TYPE: CT chest w con CT DLP: 466.8 mGycm, Automated exposure control for dose reduction was used. DATE OF EXAM: 12/28/2023 5:06 PM COMPARISON: 03/02/2023 CLINICAL INDICATION: Female, 48 years old with history of R91.1; PHH, Follow up for nodule in lung TECHNIQUE: Multiple axial images were obtained through the chest. Sagittal and coronal reformats were created for review. MIP was performed on a separate workstation. Contrast used:80 mL of Isovue 370 with IV Contrast (None if empty) Oral contrast used: (None if empty) FINDINGS: LUNGS/ PLEURA: Similar given differences in measuring technique right upper lung pulmonary nodule kali suring 16 mm no new or enlarging pulmonary nodules. AIRWAY: Patent and unremarkable. HEART: Size within normal limits. MEDIASTINUM: No gross evidence of adenopathy. VASCULATURE: No aortic aneurysm. Cardiac conduction leads terminating in right ventricle and atrium. MUSCULOSKELETAL: No acute osseous abnormalities SOFT TISSUES/LYMPH NODES: Unremarkable. LOWER NECK: No significant findings. UPPER ABDOMEN: The gallbladder surgically absent. Enlarging left adrenal gland nodule measuring 17 mm previous measuring 14 mm on 05/30/2022 without metabolic activity. IMPRESSION: 1. Stable right upper lung pulmonary nodule no new or enlarging pulmonary nodules. 2. Mildly increased in size left adrenal nodule measuring up to 17 mm, previously 14 mm [facility] Arthur Koch, , 12/28/2023 5:45 PM
== END | disposition home or self-care (01) ==
LOC: RADCTMAIN 14:45
PROVIDERS: ATTEND Internal Medicine Critical Care Medicine
DX: R91.1 Solitary pulmonary nodule
CPT/HCPCS: 36415; 71260; 82565; 84520